=== PATIENT | female | born 1955 | race Caucasian/White ===

== ENCOUNTER 2021-06-15 09:19 | Day surgery (SDC) | payer OTHER ==
[2021-06-15] VITALS (10 sets, daily range): BP systolic 115–130; BP diastolic 65–72; PULSE 60–66; TEMP 98.1
[~2021-06-15] VITALS: Ht 157.5 cm; Wt 61.6 kg
[2021-06-15 10:06] LABS: HEMATOCRIT 43.1 % (37.0-47.0); HEMOGLOBIN 14.7 g/dl (12.5-16.0); MEAN CELL VOLUME 84 fl (80.0-100.0); MEAN CORPUSCULAR HEMOGLOBIN 29 pg (27.0-31.0); MEAN CORPUSCULAR HGB CONC 34 g/dl (33.0-37.0); MEAN PLATELET VOLUME 9.5 fl (7.4-10.4); PLATELET COUNT 338 K/mm3 (130-400); RED BLOOD COUNT 5.14 M/mm3 (4.10-5.30); REDCELL DISTRIBUTION WIDTH-CV 13.8 % (11.5-14.5)
[2021-06-15 10:14] LABS: INR 0.9 (0.8-3.0); PROTHROMBIN TIME 10.2 SECONDS (9.7-12.8)
[2021-06-15 10:16] LABS: PARTIAL THROMBOPLASTIN TIME 34.9 SECONDS (26.0-37.0)
[2021-06-15 10:41] LABS: CALCIUM 9.7 mg/dL (8.4-10.2); CREATININE, serum 0.67 mg/dL (0.57-1.11); POTASSIUM 4.2 mmol/L (3.5-4.5)
[2021-06-15] MEDS ORDERED: CHANTIX START M1 TAB PO (10:52)
[2021-06-15] MEDS ORDERED: PRAVACHOL 20MG20 MG PO (10:53)
[2021-06-15] MEDS ORDERED: NEXIUM 20MG20 MG PO (10:53)
[2021-06-15] MEDS ORDERED: ROXICODONE 55 MG/TAB PO (10:53)
[2021-06-15] MEDS ORDERED: ASPIRIN E.C. 8181 MG PO (10:54)
[2021-06-15] MEDS ORDERED: NORVASC2.5 MG PO (10:54)
[2021-06-15] MEDS ORDERED: CALCIUM 600-D 61 TAB PO (10:54)
[2021-06-15] MEDS ORDERED: MOTRIN 400400 MG/TAB PO (10:55)
[2021-06-15] MEDS ORDERED: LEXAPRO20 MG PO (10:55)
[2021-06-15] MEDS ORDERED: TOPROL XL 50MG50 MG PO (10:56)
[2021-06-15] MEDS ORDERED: LIDODERM 5% PATC1 EA TP (10:56)
[2021-06-15] MEDS ORDERED: ONE-A-DAY ESSE1 EACH PO (10:57)
--- NOTE | 2021-06-15 11:11 | NUR ---
SEE MERGE FOR ALL MEDICATION ADMINISTRATION TIMES, INTRA AND POST SEDATION ASSESSMENTS
--- NOTE | 2021-06-15 12:30 | NUR ---
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 She denies complaints. Rt arm resting on folded blanket. TR band in place with velcro arm board. Sinus rhythm on conveyor monitor with BPs cycling q 15 mins. Call light in reach. at bedside.
[2021-06-15] MEDS ORDERED: GNC L-ARGININE500 MG PO (13:15)
[2021-06-15] MEDS ORDERED: TIAZAC180 MG PO (13:15)
[2021-06-15] MEDS ORDERED: EPA FISH OIL1 SGL PO (13:16)
--- NOTE | 2021-06-15 15:20 | NUR ---
Air was removed from TR band in 2ml increments with no bleeding or complications. Rt radial puncture site dressed with folded 2x2 and bandaid. Pt has steady gait up to restroom. INT DC'd with catheter intact. DC instructions reviewed with pt and , both expressed understanding. Pt is assisted out to 's car by wheelchair.
== END 2021-06-15 15:30 | disposition home or self-care (01) ==
LOC: COL.CAR 09:19
PROVIDERS: Internal Medicine Cardiovascular Disease
DX: R94.39 Abnormal result of other cardiovascular function study (principal); R00.2 Palpitations; G62.9 Polyneuropathy, unspecified; E78.49 Other hyperlipidemia; I10 Essential (primary) hypertension; I49.3 Ventricular premature depolarization; M47.817 Spondylosis without myelopathy or radiculopathy, lumbosacral region; M81.0 Age-related osteoporosis without current pathological fracture; F17.210 Nicotine dependence, cigarettes, uncomplicated; F32.9 Major depressive disorder, single episode, unspecified; Z79.82 Long term (current) use of aspirin; Z79.899 Other long term (current) drug therapy; Z79.891 Long term (current) use of opiate analgesic; Z83.3 Family history of diabetes mellitus; Z82.3 Family history of stroke
CPT/HCPCS: C1769; C1894; J1644; J2250; J3010